=== PATIENT | female | born 1980 | race Caucasian/White ===

== ENCOUNTER 2018-03-10 19:43 | Emergency (ER) | payer OTHER ==
[2018-03-10] MEDS ORDERED: ONDANSETRON HCL/PF 4 MG/ 2ML VIAL IVP ONE (19:47)
--- NOTE | 2018-03-10 19:47 | ED Physician Documentation ---
Abdominal Pain - HISTORIAN Historian: patient - HPI Stated Complaint: abdominal pain Chief Complaint: Abdominal Pain Onset: days ago (5) Duration: constant Timing: still present Context: denies: out of country travel, bad food, recent trauma Severity: moderate Quality: pain, cramping, sharp Associated Symptoms: nausea. denies: fever, vomiting, grossly bloody stools, loss of appetite Exacerbated by: nothing Relieved by: nothing Further Comments: yes (She states the pain started late Sat early Tuesday and was sudden and sharp. She explains right upper quad. States her last normal bowel movement was Tuesday . She has pain that is increasing in intensity . She states the pain is sharp and 7/10 > She has not tried any OTC meds in recent days. She states she is currently on her period. She is on meds for seizures and states she is new to the area so she does not have a PCP) - ROS CONST: no problems GI/: denies: dark urine, problems urinating CVS/RESP: none MS/SKIN/LYMPH: none NEURO/PSYCH: none - SOCIAL HX Smoking History: non-smoker Alcohol Use: none Drug Use: none - FAMILY HX Family History: none - PAST HX Past History: other (seizures ) Ischemic Bowel Risk Factors: none Other History: none Surgeries/Procedures: none Immunizations: UTD Home Medications: Ambulatory Orders Medication Instructions Recorded Albuterol Sulfate [Proair HFA] 1 inh INH DIRECTED PRN 03/10/18 Divalproex Sodium [Depakote] 1,500 mg PO BID 03/10/18 Allergies/Adverse Reactions: Allergies Allergy/AdvReac Type Severity Reaction Status Date / Time phenobarbital Allergy Severe Anaphylaxis Verified 03/10/18 20:40 phenytoin [From Dilantin] Allergy Severe Anaphylaxis Verified 03/10/18 20:40 hydrocodone [From Vicodin] AdvReac Nausea/Vomi Verified 03/10/18 21:08 ting oxycodone [From Percocet] AdvReac Nausea/Vomi Verified 03/10/18 21:06 ting - VITAL SIGNS Vital Signs: Vital Signs Temp Pulse Resp BP Pulse Ox 98.8 F 67 18 107/60 98 03/10/18 19:44 03/10/18 19:44 03/10/18 19:44 03/10/18 19:44 03/10/18 19:44 - REVIEWED ASSESSMENTS Nursing Assessment Reviewed: Yes Vitals Reviewed: Yes Progress - Progress Progress: 2044: Requesting pain medication. Discussed finding cause prior to medication. She is aware DG 2110: Results of scan returned. Will medicate with meds for pain due to allergy list and seizure disorder will try Ibuprofen and zantac for epigasric pain. She also notes she is currently on her menstrual cycle. DG 2119: nausea is improved DG 2153: results discussed and plan. She is agreeable DG ED Results Lab/Radiology - Lab Results Lab Results: Lab Results 03/10/18 03/10/18 03/10/18 20:08 20:08 20:08 WBC RBC Hgb Hct MCV MCH MCHC RDW Plt Count Neut % (Auto) Lymph % (Auto) Sevier % (Auto) Eos % (Auto) Baso % (Auto) Neut # (Auto) Lymph # (Auto) Sevier # (Auto) Eos # (Auto) Baso # (Auto) Reactive Lymphs % Reactive Lymphs # Sodium 140 mmol/L mmol/L (136-145) Potassium 3.5 mmol/L mmol/L (3.5-5.1) Chloride 107 mmol/L mmol/L (98-107) Carbon Dioxide 27 mmol/L mmol/L (22-30) BUN 9 mg/dL mg/dL (7-17) Creatinine 0.70 mg/dL mg/dL (0.52-1.04) Estimated Creat Clear 148 Est GFR ( Amer) > 60 (60 - ) Est GFR (Non-Af Amer) > 60 (60 - ) Glucose 103 mg/dL mg/dL (74-106) Calcium 8.5 mg/dL mg/dL (8.4-10.2) Total Bilirubin < 0.2 mg/dL L mg/dL (0.2-1.3) AST 13 U/L L U/L (15-46) ALT 16 U/L U/L (13-69) Alkaline Phosphatase 54 U/L U/L (38-126) Total Protein 6.9 g/dL g/dL (6.3-8.2) Albumin 3.7 g/dL g/dL (3.5-5.0) Lipase 74 U/L U/L (23-300) Serum HCG, Qual Negative (NEGATIVE) 03/10/18 20:08 WBC 6.30 K/ul K/ul (4.00-12.00) RBC 4.45 M/ul M/ul (3.90-5.20) Hgb 13.8 g/dL g/dL (12.0-16.0) Hct 42.4 % % (34.5-46.5) MCV 95.2 fl fl (80.0-100.0) MCH 30.9 pg pg (28.0-34.0) MCHC 32.5 g/dL g/dL (30.0-36.0) RDW 13.8 % % (11.3-14.3) Plt Count 202 K/mm3 K/mm3 (130-400) Neut % (Auto) 61.4 % % (39.0-79.0) Lymph % (Auto) 30.5 % % (16.0-50.0) Sevier % (Auto) 4.2 % % (0.0-11.0) Eos % (Auto) 2.4 % % (0.0-6.8) Baso % (Auto) 0.3 (0.0-1.5) Neut # (Auto) 3.9 # k/uL # k/uL (1.4-7.7) Lymph # (Auto) 1.9 # k/uL # k/uL (0.6-4.0) Sevier # (Auto) 0.3 # k/uL # k/uL (0.0-0.9) Eos # (Auto) 0.2 # k/uL # k/uL (0.0-0.6) Baso # (Auto) 0.0 # k/uL # k/uL (0.0-0.5) Reactive Lymphs % 1.2 % % (0.0-5.0) Reactive Lymphs # 0.1 # k/uL # k/uL (0.0-0.8) Sodium Potassium Chloride Carbon Dioxide BUN Creatinine Estimated Creat Clear Est GFR ( Amer) Est GFR (Non-Af Amer) Glucose Calcium Total Bilirubin AST ALT Alkaline Phosphatase Total Protein Albumin Lipase Serum HCG, Qual - Radiology Radiology Impressions: Computed tomography abdomen pelvis without contrast History: Abdominal pain and nausea Findings: Transverse abdomen and pelvis sections are obtained without contrast. The gallbladder is partially contracted. The liver, kidneys, spleen, lung bases, pancreas, and adrenals are grossly normal. Bowel loops exhibit normal caliber and wall thickness. Minimal lumbar spondylosis is observed. There is no evidence of appendicitis. Pelvic sections reveal normal sized uterus and ovaries. Pelvic bowel loops and urinary bladder are unremarkable. Shotty bilateral inguinal lymph nodes are present. Impression: 1. Shotty inguinal adenopathy of doubtful significance. 2. No acute inflammatory or obstructive process observed in the abdomen or pelvis. Electronically signed on Mar 10, 2018 8:57:44 PM CDT by: Esequiel Carlson - Orders Orders: ED Orders Category Date Time Status IV Started NOW Care 03/10/18 19:[address] ABD & PELVIS W/O CON Stat Exams 03/10/18 Completed CBC/PLATELET/DIFF Stat Lab 03/10/18 20:08 Completed CMP Routine Lab 03/10/18 20:08 Completed LIPASE Stat Lab 03/10/18 20:08 Completed SERUM HCG Routine Lab 03/10/18 20:08 Completed UDS [DRUG SCREEN URINE MEDICAL ONLY] Routine Lab 03/10/18 Ordered URINALYSIS Routine Lab 03/10/18 Ordered 0.9 % Sodium Chloride [Normal Saline] 1,000 ml Med 03/10/18 20:00 Ordered IV Q10H Famotidine [Pepcid] Med 03/10/18 21:12 Discontinued 20 mg PO NOW ONE Ibuprofen [Advil] Med 03/10/18 21:12 Discontinued 400 mg PO .STK-MED ONE Ibuprofen [Advil] Med 03/10/18 21:10 Discontinued 800 mg PO .STK-MED ONE Ibuprofen [Advil] Med 03/10/18 21:05 Discontinued 800 mg PO NOW ONE Ondansetron HCl/Pf [Zofran 4 mg/2 ml] Med 03/10/18 19:47 Discontinued 4 mg IVP NOW ONE Promethazine HCl [Phenergan] Med 03/10/18 20:25 Discontinued 25 mg .ROUTE .STK-MED ONE Promethazine HCl [Phenergan] 25 mg Med 03/10/18 20:30 Discontinued 0.9 % Sodium Chloride [Sodium Chloride] 50 ml IV NOW EKG WITH COMPARISON Stat Ther 03/10/18 Ordered Abdominal Pain Physical Exam - Physical Exam General Appearance: no acute distress, alert EENT: eye inspection normal NECK: normal inspection RESPIRATORY: no resp distress, chest non-tender, breath sounds normal CVS: reg rate & rhythm, heart sounds normal ABDOMEN: soft, normal bowel sounds, no distension, tenderness (palpation of epigastric area ) RECTAL: normal exam SKIN: warm/dry, normal color EXTREMITIES: non-tender NEURO: oriented X3, CN's nml as tested, motor nml, sensation nml, mood/affect nml, cognition normal Vital Signs: Vital Signs Temp Pulse Resp BP Pulse Ox 98.8 F 67 18 107/60 98 03/10/18 19:44 03/10/18 19:44 03/10/18 19:44 03/10/18 19:44 03/10/18 19:44 Discharge Clincal Impression: Abdominal pain Qualifiers: Abdominal location: epigastric Qualified Code(s): R10.13 - Epigastric pain Referrals: Primary Doctor,No [Primary Care Provider] - 2 Days Comments: 1. Increase fluids 2. Zantac 150 mg BID 3. Decrease fatty or fried foods 4. Establish care with PCP 5. Ibuprofen 800 mg BID as needed for pain 6. Return to ER for concerns Condition: Stable Disposition: 01 HOME, SELF-CARE Decision to Admit: NO Date of Decison to Admit: 03/10/18 Decision Time: 21:54
[2018-03-10] MEDS ORDERED: 0.9 % SODIUM CHLORIDE 1,000 ML IV SCH (20:00)
[2018-03-10 20:17] LABS: BASOPHILS % 0.3 (0.0-1.5); EOSINOPHILS % 2.4 % (0.0-6.8); MEAN CORPUSCULAR HEMOGLOBIN 30.9 pg (28.0-34.0); MEAN CORPUSCULAR VOLUME 95.2 fl (80.0-100.0); MONOCYTES % 4.2 % (0.0-11.0); NEUTROPHILS # 3.9 # k/uL (1.4-7.7)
[2018-03-10] MEDS ORDERED: 0.9 % SODIUM CHLORIDE 1,000 ML IV ONE (20:17)
[2018-03-10] MEDS ORDERED: PROMETHAZINE HCL 25 MG/ML VIAL ONE (20:25)
[2018-03-10 20:27] LABS: eGFR (African) > 60; eGFR (Non-African) > 60
[2018-03-10] MEDS ORDERED: PROMETHAZINE HCL 25 MG in 0.9 % SODIUM CHLORIDE 50 ML IV ONE (20:30)
[2018-03-10] MEDS ORDERED: IBUPROFEN 200 MG TABLET PO ONE (21:05)
--- NOTE | 2018-03-10 21:05 | Diagnostic Imaging Report ---
EMILY GONZALEZ [facility] [address] [facility] [address] [place], [place]. [address] Report Submission Date: Mar 10, 2018 8:57:44 PM CDT Patient Study Name: EVANS DE ANDA Date: Mar 10, 2018 8:37:19 PM CDT Modality Type: CT Gender: F Description: CT ABD PELVIS W/O CO : 76 Institution: [facility] Physician: EMILY GONZALEZ Computed tomography abdomen pelvis without contrast History: Abdominal pain and nausea Findings: Transverse abdomen and pelvis sections are obtained without contrast. The gallbladder is partially contracted. The liver, kidneys, spleen, lung bases, pancreas, and adrenals are grossly normal. Bowel loops exhibit normal caliber and wall thickness. Minimal lumbar spondylosis is observed. There is no evidence of appendicitis. Pelvic sections reveal normal sized uterus and ovaries. Pelvic bowel loops and urinary bladder are unremarkable. Shotty bilateral inguinal lymph nodes are present. Impression: 1. Shotty inguinal adenopathy of doubtful significance. 2. No acute inflammatory or obstructive process observed in the abdomen or pelvis. Electronically signed on Mar 10, 2018 8:57:44 PM CDT by: Esequiel DONNELLY
[2018-03-10] MEDS ORDERED: IBUPROFEN 400 MG TABLET PO ONE ×2 (21:10→21:12)
[2018-03-10] MEDS ORDERED: FAMOTIDINE 20 MG TABLET PO ONE (21:12)
[2018-03-10 22:38] VITALS: BP 112/61
[2018-03-11 06:34] LABS: APPEARANCE,URINE CLEAR (CLEAR); COLOR,URINE YELLOW (YELLOW); OCCULT BLOOD,URINE NEGATIVE (NEGATIVE); PH URINE 8.5 (5.0 - 8.0); UROBILINOGEN URINE 0.2 Eu (0.2-1.0)
[2018-03-11 06:49] LABS: CANNABINOIDS NON NEGATIVE ng/mL (< 50); METHYLENEDIOXYMETHAMPHETAMINE NEGATIVE ng/mL (<500)
== END 2018-03-10 22:07 | disposition home or self-care (01) ==
LOC: ED 19:43
DX: R10.13 Epigastric pain (principal)
CPT/HCPCS: 74176; 80053; 80377; 81002; 83690; 84703; 85025; J2550; J7030; 96365; 96368; 99284; G0481